=== PATIENT | female | born 1980 | race Caucasian/White ===

== ENCOUNTER 2025-02-20 10:39 | Emergency (ER) | payer OTHER ==
[~2025-02-20] VITALS: Ht 162.6 cm; Wt 103.6 kg
[2025-02-20] MEDS ORDERED: LAMO100T80 PO (11:03)
[2025-02-20 11:24] LABS: KETONE, URINE AUTO RFX NEGATIVE (NEGATIVE); LEUKOCYTE ESTERASE UR AUTO RFX NEGATIVE (NEGATIVE); MUCUS, URINE RFX SMALL (NEGATIVE); NITRITE, URINE AUTO RFX NEGATIVE (NEGATIVE); RBC, URINE AUTO RFX 1 /HPF (0-3); SQUAM EPITHELIAL CELL UR AURFX 5 /HPF (0-6); WBC, URINE AUTO RFX 4 /HPF (0-3)
[2025-02-20 12:38] LABS: BASO % 0.4 % (0.0-1.0); EOS # 0.1 10^3/uL (0.0-0.5); EOS % 1.3 % (0.0-3.0); HEMATOCRIT 39.6 % (36.0-47.0); HEMOGLOBIN 13.5 g/dl (12.0-15.5); LYMPH # 1.9 10^3/uL (1.5-5.0); LYMPH % 17.9 % (24.0-44.0); MEAN CORPUSCULAR HGB CONC 34.1 g/dl (32.0-36.5); MEAN CORPUSCULAR VOLUME 93.8 fl (80.0-96.0); MONO # 0.5 10^3/uL (0.0-0.8); MONO % 4.9 % (2.0-8.0); NEUTROPHILS # 7.9 10^3/uL (1.5-8.5); NEUTROPHILS % 75.2 % (36.0-66.0); PLATELET COUNT, AUTOMATED 344 10^3/uL (150-450); RED BLOOD COUNT 4.22 10^6/uL (4.00-5.40); WHITE BLOOD COUNT 10.5 10^3/uL (4.0-10.0)
[2025-02-20 12:54] LABS: LIPASE 29 U/L (12-53)
[2025-02-20 12:56] LABS: ALBUMIN 3.8 G/DL (3.2-5.2); ALKALINE PHOSPHATASE 131 U/L (35-104); ALT/SGPT 33 U/L (7.0-40); AST/SGOT 38 U/L (<34); BILIRUBIN,DIRECT 0.1 MG/DL (<0.4); BILIRUBIN,TOTAL 0.4 MG/DL (0.3-1.2); BLOOD UREA NITROGEN 14 MG/DL (9-23); CARBON DIOXIDE LEVEL 23 MMOL/L (20-31); CHLORIDE LEVEL 108 MMOL/L (98-107); CREATININE FOR GFR 0.71 MG/DL (0.55-1.30); GLOMERULAR FILTRATION RATE > 60.0 (>58); GLUCOSE, FASTING 88 MG/DL (60-100); POTASSIUM SERUM 4.5 MMOL/L (3.5-5.1); SODIUM LEVEL 141 MMOL/L (136-145); TOTAL PROTEIN 7.8 G/DL (5.7-8.2)
[2025-02-20] MEDS ORDERED: ISOVUE-370 76% 100ML VIAL As Ordered ONE (16:22)
[2025-02-20] MEDS: ONDANSETRON 4MG 2ML VIAL IV ONE (16:29)
[2025-02-20] MEDS: KETOROLAC 30 MG/ML 1ML VIAL IV ONE (16:29)
[2025-02-20] MEDS: NS (Normal Saline) 0.9% 1,000 ML IV ONE (16:31)
[2025-02-20 16:35] LABS: HCG, SERUM QUALITATIVE NEGATIVE (NEGATIVE)
[2025-02-20] MEDS ORDERED: ONDA-282 PO (18:08)
[2025-02-20] MEDS ORDERED: IBUP-1022 PO (18:08)
[2025-02-20 18:25] VITALS: BP 146/65; TEMP 97.6; O2SAT 97
[2025-02-20] MEDS: MAGNESIUM CITRATE 300ML BTL PO ONE (18:35)
== END 2025-02-20 18:34 | disposition home or self-care (01) ==
LOC: M ED 10:39
DX: R10.31 Right lower quadrant pain (principal); F17.200 Nicotine dependence, unspecified, uncomplicated; Z88.5 Allergy status to narcotic agent; Z79.83 Long term (current) use of bisphosphonates; Z79.899 Other long term (current) drug therapy
CPT/HCPCS: 74177; 80048; 80076; 81001; 83690; 84703; 85025; 96361; 96374; 99284; J1885; J2405; Q9967

== ENCOUNTER 2025-05-13 11:35 | Emergency (ER) | payer OTHER, SELFPAY ==
[~2025-05-13] VITALS: Ht 162.6 cm; Wt 103.6 kg
[~2025-05-13 11:35] MED LIST: IBUP-1022 PO; LAMO100T80 PO; ONDA-282 PO
[2025-05-13 14:49] VITALS: BP 134/87; TEMP 98.6; O2SAT 96
[2025-05-13] MEDS ORDERED: ZITHTAB PO (14:51)
[2025-05-13] MEDS ORDERED: BENZ200C70 PO (14:51)
== END 2025-05-13 15:06 | disposition home or self-care (01) ==
LOC: M ED 11:35
DX: J06.9 Acute upper respiratory infection, unspecified (principal); B34.9 Viral infection, unspecified; G40.909 Epilepsy, unspecified, not intractable, without status epilepticus; Z88.5 Allergy status to narcotic agent; Z79.899 Other long term (current) drug therapy; Z79.1 Long term (current) use of non-steroidal anti-inflammatories (NSAID); Z79.83 Long term (current) use of bisphosphonates